=== PATIENT | male | born 1975 | race Two or more races ===

== ENCOUNTER 2021-07-17 08:14 | Outpatient (CLI) | payer OTHER | END 2021-07-17 08:17 | disposition home or self-care (01) | LOC: SONOGRAMA 08:14 | PROVIDERS: ATTEND Pathology Anatomic Pathology & Clinical Pathology | DX: E04.1 Nontoxic single thyroid nodule (principal) ==

== ENCOUNTER 2021-10-19 09:05 | Outpatient (CLI) | payer OTHER | END 2021-10-19 09:08 | disposition home or self-care (01) | LOC: SONOGRAMA 09:05 | PROVIDERS: ATTEND Pathology Anatomic Pathology & Clinical Pathology | DX: E04.2 Nontoxic multinodular goiter (principal) ==